=== PATIENT | male | born 1955 | race Caucasian/White ===

== ENCOUNTER 2024-03-31 18:22 | Inpatient (IN) | payer MEDICARE, MEDICAID ==
[~2024-03-31] VITALS: Ht 182.9 cm; Wt 165.5 kg
[~2024-03-31 18:22] MED LIST: INSU100V11 SQ; LANTUS SQ; LISI-642 PO; METR500T PO; NOR5T PO
[2024-03-31 18:53] LABS: BASOPHILS # (AUTO) 0.1 X10'3 (0-0.2); EOSINOPHILS # (AUTO) 0.1 X10'3 (0-0.9); EOSINOPHILS % (AUTO) 2.4 % (0-6); HEMATOCRIT 41.2 % (42.0-52.0); HEMOGLOBIN 13.4 g/dl (14.0-17.9); LYMPHOCYTES # (AUTO) 1.2 X10'3 (1.1-4.8); LYMPHOCYTES % (AUTO) 19.5 % (21-51); MEAN CORPUSCULAR HEMOGLOBIN 27.9 PG (27.0-31.0); MEAN CORPUSCULAR HGB CONC 32.4 g/dL (33.0-36.5); MEAN CORPUSCULAR VOLUME 86.2 FL (78-98); MEAN PLATELET VOLUME 6.4 FL (7.4-10.4); MONOCYTES # (AUTO) 0.6 X10'3 (0-0.9); MONOCYTES % (AUTO) 10.5 % (2-12); NEUTROPHILS # (AUTO) 4.1 X10'3 (1.8-7.7); NEUTROPHILS % (AUTO) 66.6 % (42-75); PLATELET COUNT 354 X10'3 (140-440); RED BLOOD COUNT 4.79 X10'6 (4.70-6.10); RED CELL DISTRIBUTION WIDTH 15.4 % (11.5-14.5); WHITE BLOOD COUNT 6.1 X10'3 (4.5-11.0)
[2024-03-31 19:20] LABS: ALANINE AMINOTRANSFERASE 15 U/L (12-78); ALBUMIN 3.1 G/DL (3.4-5.0); ALBUMIN/GLOBULIN RATIO 0.9 (1.1-1.5); ALKALINE PHOSPHATASE 86 IU/L (46-116); ANION GAP 13 (8-16); ASPARTATE AMINO TRANSFERASE 21 U/L (10-37); BILIRUBIN,TOTAL 0.8 MG/DL (0.1-1.0); BLOOD UREA NITROGEN 31 MG/DL (7-18); BUN/CREATININE RATIO 15.7 (10.0-20.0); CALCIUM 7.8 MG/DL (8.5-10.1); CHLORIDE 103 MMOL/L (99-107); CREATININE 1.97 MG/DL (0.60-1.10); GLUCOSE 145 MG/DL (70-104); SODIUM 140 MMOL/L (135-145); TOTAL CARBON DIOXIDE 24.1 MMOL/L (24-32); TOTAL PROTEIN 6.4 G/DL (6.4-8.2); eCRCL 40 ML/MIN; eGFR 34 ML/MIN
[2024-03-31 19:30] LABS: PRO BRAIN NATRIURETIC PEPTIDE 10016 PG/ML (0-125)
[2024-03-31] MEDS: furosemide 10 MG/1 ML 10ml inj IV ONE (21:03)
[2024-03-31] MEDS ORDERED: magnesium sulf-water 2g/50mL 50 ML IV PRN (21:40)
[2024-03-31] MEDS ORDERED: potassium Cl 40MEQ/1/2NS 520ml 520 ML IV PRN (21:40)
[2024-03-31] MEDS ORDERED: magnesium sulf-water 4G/100mL 100 ML IV PRN (21:40)
[2024-03-31] MEDS ORDERED: potassium Cl 20 mEq SR tablet PO PRN ×2 (21:40)
[2024-03-31] MEDS ORDERED: glucagon, human recombinant 1mg kit SUBCUT PRN (21:55)
[2024-03-31] MEDS ORDERED: DEXTROSE 15 GM of carb/4 tabs (each vial/BOTTLE has 4 tablets) PO PRN (21:55)
[2024-03-31] MEDS ORDERED: dextrose 50%-water 50ml dispensing syringe IV PRN ×2 (21:55)
[2024-03-31] MEDS ORDERED: VERA80TA7 PO (21:56)
[2024-03-31] MEDS ORDERED: OMEP40CA21 PO (21:56)
[2024-03-31] MEDS ORDERED: FURO20TA4 PO (21:56)
[2024-03-31] MEDS ORDERED: GABA-1555 PO (21:56)
[2024-03-31] MEDS ORDERED: APIX5TAB3 PO (21:56)
[2024-03-31] MEDS ORDERED: MIRT-87 PO (21:56)
[2024-03-31] MEDS ORDERED: MIRT-88 PO (21:56)
[2024-03-31] MEDS ORDERED: PRAZ1CAP5 PO (21:56)
[2024-03-31] MEDS ORDERED: LEVO50TA8 PO (21:56)
[2024-03-31] MEDS ORDERED: METF-438 PO (21:56)
[2024-03-31] MEDS ORDERED: HYDR-3686 PO (21:56)
[2024-03-31] MEDS ORDERED: ATOR40TA72 PO (21:56)
[2024-03-31] MEDS ORDERED: ESCI20TA39 PO (21:56)
[2024-03-31 22:00] LABS: HEMOGLOBIN A1C 8.2 % (4.5-6.2)
[2024-03-31] MEDS: PERFLUTREN PROTEIN-A MICROSPHR (Optison) 0.22 MG/ML 3ML VIAL IV ONE (22:21)
[2024-03-31 22:40] LABS: BILIRUBIN,URINE NEGATIVE (Neg); CLARITY,URINE CLOUDY (Clear); COLOR,URINE YELLOW (Yellow); GLUCOSE, URINE NEGATIVE (Neg); KETONES,URINE TRACE mg/dl (Neg); LEUKOCYTE ESTERASE ,URINE NEGATIVE (Neg); NITRITES, URINE NEGATIVE (Neg); OCCULT BLOOD,URINE NEGATIVE (Neg); PH,URINE 5.5 (4.8-8.0); PROTEIN,URINE TRACE mg/dl (Neg); UROBILINOGEN,URINE 0.2 E.U/dL (0.2-1.0)
[2024-03-31 22:48] LABS: BACTERIA,URINE 4+ /HPF (Neg); RBC,URINE NONE SEEN /HPF (0-2); SQUAMOUS EPITHELIAL CELL,UR FEW /LPF (FEW); UA COLLECTION TYPE CLN CATCH MIDSTREAM
[2024-03-31 23:11] LABS: OSMOLALITY UA 441.5 MOSM/K (50-1400)
[2024-04-01] VITALS (9 sets, daily range): BP systolic 90–131; BP diastolic 60–84; PULSE 52–125; RESP 14–20; TEMP 97.4–98.5; O2SAT 92–99
[2024-04-01] MEDS: FLU VACC TS2024-25(6MOS UP)/PF 45 MCG/0.5 ML SYRINGE IMVAC ONE (02:25)
[2024-04-01] MEDS: HYDROcodone/acetaminophen 10/325mg tab PO ONE (05:34)
[2024-04-01 06:51] LABS: BASOPHILS # (AUTO) 0.1 X10'3 (0-0.2); BASOPHILS % (AUTO) 0.8 % (0-1); EOSINOPHILS # (AUTO) 0.2 X10'3 (0-0.9); EOSINOPHILS % (AUTO) 2.4 % (0-6); HEMATOCRIT 39.5 % (42.0-52.0); HEMOGLOBIN 12.9 g/dl (14.0-17.9); LYMPHOCYTES # (AUTO) 1.1 X10'3 (1.1-4.8); LYMPHOCYTES % (AUTO) 17.2 % (21-51); MEAN CORPUSCULAR HGB CONC 32.7 g/dL (33.0-36.5); MEAN CORPUSCULAR VOLUME 85.7 FL (78-98); MEAN PLATELET VOLUME 6.9 FL (7.4-10.4); MONOCYTES # (AUTO) 0.7 X10'3 (0-0.9); MONOCYTES % (AUTO) 10.6 % (2-12); NEUTROPHILS # (AUTO) 4.6 X10'3 (1.8-7.7); PLATELET COUNT 324 X10'3 (140-440); RED BLOOD COUNT 4.61 X10'6 (4.70-6.10); RED CELL DISTRIBUTION WIDTH 15.3 % (11.5-14.5); WHITE BLOOD COUNT 6.6 X10'3 (4.5-11.0)
[2024-04-01 06:56] LABS: ALBUMIN 2.9 G/DL (3.4-5.0); ANION GAP 12 (8-16); BLOOD UREA NITROGEN 32 MG/DL (7-18); BUN/CREATININE RATIO 19.5 (10.0-20.0); CALCIUM 7.8 MG/DL (8.5-10.1); CHLORIDE 105 MMOL/L (99-107); CHOL/HDL RATIO 2.5 (0.00-4.99); CHOLESTEROL 81 MG/DL (0-200); CREATININE 1.64 MG/DL (0.60-1.10); GLUCOSE 120 MG/DL (70-104); HDL CHOLESTEROL 33 MG/DL (35-60); LDL CHOLESTEROL 44 MG/DL (50-100); MAGNESIUM 1.1 MG/DL (1.5-2.4); SODIUM 139 MMOL/L (135-145); TOTAL CARBON DIOXIDE 21.8 MMOL/L (24-32); TRIGLYCERIDES 69 MG/DL (20-135); eCRCL 48 ML/MIN; eGFR 42 ML/MIN
[2024-04-01] MEDS: INSULIN LISPRO 100 UNIT/ML INSULN.PEN MULTI-DOSE SQ SCH ×2 (07:00→09:17)
[2024-04-01] MEDS: K and/or MAG REPLACEMENT MC SCH (08:00)
[2024-04-01 09:25] LABS: THYROID STIMULATING HORMONE 3.39 ulU/ml (0.34-4.50)
[2024-04-01] MEDS: ESCITALOPRAM 10 mg tablet 10 MG TABLET PO SCH (09:26)
[2024-04-01] MEDS: sacubitril/valsartan 24mg-26mg tablet PO SCH (09:28)
[2024-04-01] MEDS: docusate sod 100mg capsule PO SCH (09:28)
[2024-04-01] MEDS: apixaban 5mg tablet PO SCH (09:28)
[2024-04-01] MEDS: furosemide 40mg/4ml inj IV SCH ×2 (09:29→14:16)
[2024-04-01] MEDS: gabapentin 400mg capsule PO SCH (09:29)
[2024-04-01] MEDS: atorvastatin 20mg tablet PO SCH (09:29)
[2024-04-01] MEDS: pantoprazole 40mg Tablet.DR PO SCH (09:29)
[2024-04-01] MEDS: metoprolol succinate 25mg (24-HOUR) SR. Tablet PO SCH (09:30)
[2024-04-01] MEDS: levoTHYROXINE 25mcg tablet PO SCH (09:30)
[2024-04-01] MEDS: metoprolol tartrate 25mg tablet PO ONE (14:17)
[2024-04-01] MEDS: isosorbide mononitrate 30mg tab.SR.24H PO SCH (14:18)
[2024-04-01 17:20] LABS: GLUCOSE,BODY FLUID 148 MG/DL; LDH,BODY FLUID 72 U/L; TOTAL PROTEIN,BODY FLUID 3.3 G/DL
[2024-04-01 17:31] LABS: BF RBC COUNT 860 /CU MM; BF WBC COUNT 71 /CU MM (0-1000); BFAPPEAR HAZY; BFCOLOR YELLOW; BFSOURCE ASCITES FLD; BFVOLUME 55 ML; LYMPHOCYTES,BODY FLUID 86 %; MONOCYTES,BODY FLUID 1 %; NEUTROPHILS,BODY FLUID 13 %
[2024-04-01 18:17] LABS: LACTATE DEHYDROGENASE 206 U/L (85-227)
[2024-04-01] MEDS ORDERED: ipratropium/albuterol 3ml nebule NEB PRN (18:55)
[2024-04-01] MEDS: HALLS - SOOTHE MENTHOL 1.8 MG cough drop LOZENGE MM PRN (19:32)
[2024-04-01] MEDS: ondansetron/PF 4mg/2ml inj IV PRN (19:35)
[2024-04-01] MEDS: ipratropium/albuterol 3ml nebule NEB SCH (19:48)
[2024-04-01] MEDS: mirtazapine 15mg tablet PO SCH (22:19)
[2024-04-01] MEDS: gabapentin 300mg capsule PO SCH (22:19)
[2024-04-01] MEDS: prazosin 1mg capsule PO SCH (22:19)
[2024-04-01] MEDS: insulin glargine (Lantus) pen - multi-dose SQ SCH (22:35)
[2024-04-01 23:40] LABS: URINE AMPHETAMINE SCREEN NEGATIVE (Neg); URINE BARBITUATE SCREEN NEGATIVE (Neg); URINE BENZODIAZEPINES SCREEN NEGATIVE (Neg); URINE CANNABINOID SCREEN NEGATIVE (Neg); URINE COCAINE SCREEN NEGATIVE (Neg); URINE METHADONE SCREEN NEGATIVE (Neg); URINE OPIATE SCREEN POSITIVE (Neg); URINE PHENCYCLIDINE SCREEN NEGATIVE (Neg)
[2024-04-02] VITALS (11 sets, daily range): BP systolic 102–139; BP diastolic 54–94; PULSE 66–94; RESP 14–18; TEMP 97.3–98.3; O2SAT 92–96
[2024-04-02] MEDS: HYDROcodone/acetaminophen 10/325mg tab PO PRN (00:19)
[2024-04-02] MEDS: mag hydrox/Alum hydrox/simeth 30ml oral suspension PO PRN (00:53)
[2024-04-02 07:27] LABS: BASOPHILS % (AUTO) 0.2 % (0-1); EOSINOPHILS % (AUTO) 0 % (0-6); HEMATOCRIT 40.1 % (42.0-52.0); HEMOGLOBIN 13.3 g/dl (14.0-17.9); LYMPHOCYTES # (AUTO) 0.5 X10'3 (1.1-4.8); LYMPHOCYTES % (AUTO) 6.8 % (21-51); MEAN CORPUSCULAR HGB CONC 33.1 g/dL (33.0-36.5); MEAN CORPUSCULAR VOLUME 84.7 FL (78-98); MEAN PLATELET VOLUME 6.6 FL (7.4-10.4); MONOCYTES # (AUTO) 0.5 X10'3 (0-0.9); MONOCYTES % (AUTO) 6.7 % (2-12); NEUTROPHILS # (AUTO) 6.7 X10'3 (1.8-7.7); NEUTROPHILS % (AUTO) 86.3 % (42-75); PLATELET COUNT 340 X10'3 (140-440); RED BLOOD COUNT 4.73 X10'6 (4.70-6.10); RED CELL DISTRIBUTION WIDTH 15.6 % (11.5-14.5); WHITE BLOOD COUNT 7.8 X10'3 (4.5-11.0)
[2024-04-02] MEDS: DEXTROSE 15 GM of carb/4 tabs (each vial/BOTTLE has 4 tablets) PO PRN (07:41)
[2024-04-02 07:47] LABS: ALBUMIN 3.1 G/DL (3.4-5.0); ANION GAP 10 (8-16); BLOOD UREA NITROGEN 39 MG/DL (7-18); BUN/CREATININE RATIO 19.8 (10.0-20.0); CALCIUM 7.6 MG/DL (8.5-10.1); CHLORIDE 102 MMOL/L (99-107); CREATININE 1.97 MG/DL (0.60-1.10); GLUCOSE 58 MG/DL (70-104); MAGNESIUM 1.2 MG/DL (1.5-2.4); POTASSIUM 3.8 MMOL/L (3.5-5.1); SODIUM 135 MMOL/L (135-145); TOTAL CARBON DIOXIDE 22.9 MMOL/L (24-32); eCRCL 40 ML/MIN; eGFR 34 ML/MIN
[2024-04-02] MEDS: spironolactone 25 MG tablet PO SCH (11:50)
[2024-04-02 13:05] LABS: INR 1.7 INR; PROTHROMBIN TIME 17.3 SECONDS (9.0-12.0)
[2024-04-02] MEDS: EMPAGLIFLOZIN 10 MG TABLET PO SCH (13:41)
[2024-04-02] MEDS: methylPREDNISolone sod succ 125mg/2ml vial IV SCH (16:29)
[2024-04-02] MEDS: furosemide 40mg/4ml inj IV SCH (16:29)
[2024-04-02] MEDS: azithromycin/NS 500mg/250ml 250 ML IV SCH (16:29)
[2024-04-02 23:23] LABS: ALANINE AMINOTRANSFERASE 285 U/L (12-78); ALBUMIN/GLOBULIN RATIO 0.9 (1.1-1.5); ALKALINE PHOSPHATASE 88 IU/L (46-116); ASPARTATE AMINO TRANSFERASE 644 U/L (10-37); BILIRUBIN,DIRECT 0.4 MG/DL (0-0.3); BILIRUBIN,TOTAL 0.7 MG/DL (0.1-1.0); TOTAL PROTEIN 6.5 G/DL (6.4-8.2)
[2024-04-02] MEDS: cefepime 1GM in D5W 50mL 50 ML IV SCH (23:34)
[2024-04-03] VITALS (17 sets, daily range): BP systolic 96–100; BP diastolic 56–89; PULSE 59–99; RESP 12–19; TEMP 97.3–98.5; O2SAT 92–97
[2024-04-03 06:58] LABS: ALBUMIN 2.9 G/DL (3.4-5.0); ANION GAP 9 (8-16); BLOOD UREA NITROGEN 46 MG/DL (7-18); BUN/CREATININE RATIO 22.9 (10.0-20.0); CALCIUM 7.6 MG/DL (8.5-10.1); CHLORIDE 102 MMOL/L (99-107); CREATININE 2.01 MG/DL (0.60-1.10); GLUCOSE 105 MG/DL (70-104); MAGNESIUM 1.3 MG/DL (1.5-2.4); POTASSIUM 4.4 MMOL/L (3.5-5.1); SODIUM 136 MMOL/L (135-145); TOTAL CARBON DIOXIDE 25.4 MMOL/L (24-32); eCRCL 39 ML/MIN; eGFR 33 ML/MIN
[2024-04-03 06:59] LABS: BASOPHILS % (AUTO) 0.1 % (0-1); EOSINOPHILS % (AUTO) 0 % (0-6); HEMATOCRIT 39.3 % (42.0-52.0); HEMOGLOBIN 12.9 g/dl (14.0-17.9); LYMPHOCYTES # (AUTO) 0.5 X10'3 (1.1-4.8); LYMPHOCYTES % (AUTO) 6.9 % (21-51); MEAN CORPUSCULAR HEMOGLOBIN 27.9 PG (27.0-31.0); MEAN CORPUSCULAR HGB CONC 32.8 g/dL (33.0-36.5); MEAN CORPUSCULAR VOLUME 85.1 FL (78-98); MEAN PLATELET VOLUME 6.8 FL (7.4-10.4); MONOCYTES # (AUTO) 0.1 X10'3 (0-0.9); MONOCYTES % (AUTO) 1.4 % (2-12); NEUTROPHILS % (AUTO) 91.6 % (42-75); PLATELET COUNT 323 X10'3 (140-440); RED BLOOD COUNT 4.62 X10'6 (4.70-6.10); RED CELL DISTRIBUTION WIDTH 15.1 % (11.5-14.5); WHITE BLOOD COUNT 7.6 X10'3 (4.5-11.0)
[2024-04-03] MEDS: magnesium hydroxide 30ml (MOM) UD suspension PO PRN (07:50)
[2024-04-03] MEDS: magnesium Cl slow-release 64mg tablet PO PRN (07:52)
[2024-04-03] MEDS ORDERED: CefTRIAXone/D5W-Rocephin 1gm 50 ML IV SCH (08:00)
[2024-04-03] MEDS: pantoprazole 40 MG vial IV SCH (08:48)
[2024-04-03 09:12] LABS: ALANINE AMINOTRANSFERASE 218 U/L (12-78); ALKALINE PHOSPHATASE 86 IU/L (46-116); ASPARTATE AMINO TRANSFERASE 272 U/L (10-37); BILIRUBIN,DIRECT 0.3 MG/DL (0-0.3); BILIRUBIN,TOTAL 0.6 MG/DL (0.1-1.0); TOTAL PROTEIN 5.9 G/DL (6.4-8.2)
[2024-04-03] MEDS: magnesium oxide 400mg tablet PO SCH (12:29)
[2024-04-03] MEDS: furosemide 40mg/4ml inj IV SCH (20:00)
[2024-04-04] VITALS (15 sets, daily range): BP systolic 98–106; BP diastolic 59–69; PULSE 56–110; RESP 16–18; TEMP 97.9–98.4; O2SAT 92–95
[2024-04-04 04:20] LABS: BASOPHILS % (AUTO) 0.1 % (0-1); EOSINOPHILS % (AUTO) 0 % (0-6); HEMATOCRIT 39.3 % (42.0-52.0); HEMOGLOBIN 12.8 g/dl (14.0-17.9); LYMPHOCYTES # (AUTO) 0.5 X10'3 (1.1-4.8); MEAN CORPUSCULAR HEMOGLOBIN 27.9 PG (27.0-31.0); MEAN CORPUSCULAR HGB CONC 32.7 g/dL (33.0-36.5); MEAN CORPUSCULAR VOLUME 85.4 FL (78-98); MEAN PLATELET VOLUME 6.9 FL (7.4-10.4); MONOCYTES # (AUTO) 0.3 X10'3 (0-0.9); MONOCYTES % (AUTO) 2.8 % (2-12); NEUTROPHILS # (AUTO) 10.9 X10'3 (1.8-7.7); NEUTROPHILS % (AUTO) 93.1 % (42-75); PLATELET COUNT 335 X10'3 (140-440); RED CELL DISTRIBUTION WIDTH 15.4 % (11.5-14.5); WHITE BLOOD COUNT 11.7 X10'3 (4.5-11.0)
[2024-04-04 04:38] LABS: ALANINE AMINOTRANSFERASE 198 U/L (12-78); ALBUMIN 2.9 G/DL (3.4-5.0); ALBUMIN/GLOBULIN RATIO 0.9 (1.1-1.5); ALKALINE PHOSPHATASE 80 IU/L (46-116); ANION GAP 8 (8-16); ASPARTATE AMINO TRANSFERASE 169 U/L (10-37); BILIRUBIN,TOTAL 0.5 MG/DL (0.1-1.0); BLOOD UREA NITROGEN 48 MG/DL (7-18); BUN/CREATININE RATIO 25.8 (10.0-20.0); CALCIUM 7.9 MG/DL (8.5-10.1); CHLORIDE 102 MMOL/L (99-107); CREATININE 1.86 MG/DL (0.60-1.10); GLUCOSE 163 MG/DL (70-104); MAGNESIUM 1.6 MG/DL (1.5-2.4); POTASSIUM 4.2 MMOL/L (3.5-5.1); SODIUM 137 MMOL/L (135-145); eCRCL 42 ML/MIN; eGFR 36 ML/MIN
[2024-04-04] MEDS: CEFEPIME 2gm in D5W 50mL 50 ML IV SCH (08:00)
[2024-04-04] MEDS: lactulose 20gm/30ml cup PO SCH (17:35)
[2024-04-04] MEDS: acetaminophen 325mg tablet PO PRN (17:48)
[2024-04-05] VITALS (12 sets, daily range): BP systolic 103–127; BP diastolic 56–71; PULSE 83–96; RESP 15–18; TEMP 97–97.9; O2SAT 94–98
[2024-04-05 08:17] LABS: BASOPHILS % (AUTO) 0.2 % (0-1); EOSINOPHILS % (AUTO) 0 % (0-6); HEMATOCRIT 40.5 % (42.0-52.0); HEMOGLOBIN 13.2 g/dl (14.0-17.9); LYMPHOCYTES # (AUTO) 0.4 X10'3 (1.1-4.8); LYMPHOCYTES % (AUTO) 2.9 % (21-51); MEAN CORPUSCULAR HEMOGLOBIN 27.6 PG (27.0-31.0); MEAN CORPUSCULAR HGB CONC 32.5 g/dL (33.0-36.5); MEAN CORPUSCULAR VOLUME 85.1 FL (78-98); MEAN PLATELET VOLUME 6.4 FL (7.4-10.4); MONOCYTES # (AUTO) 0.5 X10'3 (0-0.9); NEUTROPHILS # (AUTO) 11.9 X10'3 (1.8-7.7); NEUTROPHILS % (AUTO) 92.9 % (42-75); PLATELET COUNT 344 X10'3 (140-440); RED BLOOD COUNT 4.76 X10'6 (4.70-6.10); RED CELL DISTRIBUTION WIDTH 15.2 % (11.5-14.5); WHITE BLOOD COUNT 12.9 X10'3 (4.5-11.0)
[2024-04-05 08:27] LABS: ALANINE AMINOTRANSFERASE 180 U/L (12-78); ALBUMIN 2.9 G/DL (3.4-5.0); ALBUMIN/GLOBULIN RATIO 0.9 (1.1-1.5); ALKALINE PHOSPHATASE 86 IU/L (46-116); ANION GAP 9 (8-16); ASPARTATE AMINO TRANSFERASE 117 U/L (10-37); BILIRUBIN,TOTAL 0.6 MG/DL (0.1-1.0); BLOOD UREA NITROGEN 47 MG/DL (7-18); BUN/CREATININE RATIO 28.8 (10.0-20.0); CALCIUM 7.9 MG/DL (8.5-10.1); CHLORIDE 103 MMOL/L (99-107); CREATININE 1.63 MG/DL (0.60-1.10); GLUCOSE 167 MG/DL (70-104); MAGNESIUM 1.7 MG/DL (1.5-2.4); POTASSIUM 4.1 MMOL/L (3.5-5.1); SODIUM 139 MMOL/L (135-145); TOTAL CARBON DIOXIDE 26.6 MMOL/L (24-32); eCRCL 48 ML/MIN; eGFR 42 ML/MIN
[2024-04-05] MEDS: nystatin 15 GM powder TP SCH (14:14)
[2024-04-05] MEDS: guaiFENesin ER 600mg tablet PO SCH (14:42)
[2024-04-05] MEDS ORDERED: guaiFENesin ER 600mg tablet PO SCH (20:00)
[2024-04-05] MEDS: metoprolol tartrate 25mg tablet PO SCH (20:12)
[2024-04-06] VITALS (14 sets, daily range): BP systolic 83–111; BP diastolic 49–75; PULSE 18–88; RESP 14–20; TEMP 97–98.4; O2SAT 92–99
[2024-04-06] MEDS: Melatonin 3mg tablet PO SCH (02:00)
[2024-04-06 05:21] LABS: HBSAG SCREEN Negative (Negative); HEP A AB, IGM Negative (Negative); HEP B CORE AB, IGM Negative (Negative); HEP B SURF AB Reactive (.); HEPATITIS C VIRUS ANTIBODY Non Reactive (Non Reactive)
[2024-04-06 07:35] LABS: BASOPHILS % (AUTO) 0.2 % (0-1); EOSINOPHILS % (AUTO) 0 % (0-6); HEMOGLOBIN 12.8 g/dl (14.0-17.9); LYMPHOCYTES # (AUTO) 0.4 X10'3 (1.1-4.8); LYMPHOCYTES % (AUTO) 3.8 % (21-51); MEAN CORPUSCULAR HEMOGLOBIN 27.1 PG (27.0-31.0); MEAN CORPUSCULAR VOLUME 84.7 FL (78-98); MEAN PLATELET VOLUME 6.6 FL (7.4-10.4); MONOCYTES # (AUTO) 0.4 X10'3 (0-0.9); MONOCYTES % (AUTO) 3.9 % (2-12); NEUTROPHILS # (AUTO) 10.2 X10'3 (1.8-7.7); NEUTROPHILS % (AUTO) 92.1 % (42-75); PLATELET COUNT 261 X10'3 (140-440); RED BLOOD COUNT 4.72 X10'6 (4.70-6.10); RED CELL DISTRIBUTION WIDTH 15.3 % (11.5-14.5)
[2024-04-06 07:48] LABS: ALANINE AMINOTRANSFERASE 146 U/L (12-78); ALBUMIN 2.6 G/DL (3.4-5.0); ALBUMIN/GLOBULIN RATIO 0.9 (1.1-1.5); ALKALINE PHOSPHATASE 70 IU/L (46-116); ANION GAP 9 (8-16); ASPARTATE AMINO TRANSFERASE 75 U/L (10-37); BILIRUBIN,TOTAL 0.7 MG/DL (0.1-1.0); BLOOD UREA NITROGEN 44 MG/DL (7-18); BUN/CREATININE RATIO 28.9 (10.0-20.0); CALCIUM 7.8 MG/DL (8.5-10.1); CHLORIDE 103 MMOL/L (99-107); CREATININE 1.52 MG/DL (0.60-1.10); GLUCOSE 152 MG/DL (70-104); POTASSIUM 3.9 MMOL/L (3.5-5.1); SODIUM 140 MMOL/L (135-145); TOTAL CARBON DIOXIDE 28.3 MMOL/L (24-32); TOTAL PROTEIN 5.5 G/DL (6.4-8.2); eCRCL 52 ML/MIN; eGFR 46 ML/MIN
[2024-04-06] MEDS: EMPAGLIFLOZIN 10 MG TABLET PO SCH (08:17)
[2024-04-06] MEDS: losartan 25mg tablet PO SCH (08:19)
[2024-04-06] MEDS: spironolactone 25 MG tablet PO SCH (08:30)
[2024-04-07 06:00] VITALS: BP 105/76; PULSE 74; RESP 18; TEMP 98; O2SAT 100
[2024-04-07] MEDS: CEFEPIME 2gm in D5W 50mL 50 ML IV SCH (08:00)
[2024-04-07] MEDS ORDERED: azithromycin 250mg tablet PO SCH (08:00)
[2024-04-07 08:06] LABS: BASOPHILS % (AUTO) 0.1 % (0-1); EOSINOPHILS % (AUTO) 0 % (0-6); HEMATOCRIT 44.9 % (42.0-52.0); HEMOGLOBIN 14.6 g/dl (14.0-17.9); LYMPHOCYTES # (AUTO) 0.5 X10'3 (1.1-4.8); LYMPHOCYTES % (AUTO) 3.7 % (21-51); MEAN CORPUSCULAR HEMOGLOBIN 27.7 PG (27.0-31.0); MEAN CORPUSCULAR HGB CONC 32.4 g/dL (33.0-36.5); MEAN CORPUSCULAR VOLUME 85.5 FL (78-98); MEAN PLATELET VOLUME 6.5 FL (7.4-10.4); MONOCYTES # (AUTO) 0.4 X10'3 (0-0.9); MONOCYTES % (AUTO) 3.3 % (2-12); NEUTROPHILS # (AUTO) 11.6 X10'3 (1.8-7.7); NEUTROPHILS % (AUTO) 92.9 % (42-75); PLATELET COUNT 272 X10'3 (140-440); RED BLOOD COUNT 5.26 X10'6 (4.70-6.10); RED CELL DISTRIBUTION WIDTH 15.4 % (11.5-14.5); WHITE BLOOD COUNT 12.5 X10'3 (4.5-11.0)
[2024-04-07 08:16] VITALS: PULSE 79; RESP 19; O2SAT 98
[2024-04-07 08:21] VITALS: PULSE 78; RESP 18
[2024-04-07 08:22] LABS: ALANINE AMINOTRANSFERASE 135 U/L (12-78); ALBUMIN 2.9 G/DL (3.4-5.0); ALBUMIN/GLOBULIN RATIO 0.9 (1.1-1.5); ALKALINE PHOSPHATASE 85 IU/L (46-116); ANION GAP 8 (8-16); ASPARTATE AMINO TRANSFERASE 53 U/L (10-37); BILIRUBIN,TOTAL 0.7 MG/DL (0.1-1.0); BLOOD UREA NITROGEN 47 MG/DL (7-18); BUN/CREATININE RATIO 28.8 (10.0-20.0); CALCIUM 8.3 MG/DL (8.5-10.1); CHLORIDE 102 MMOL/L (99-107); CREATININE 1.63 MG/DL (0.60-1.10); GLUCOSE 141 MG/DL (70-104); SODIUM 142 MMOL/L (135-145); TOTAL CARBON DIOXIDE 32.3 MMOL/L (24-32); TOTAL PROTEIN 6.1 G/DL (6.4-8.2); eCRCL 48 ML/MIN; eGFR 42 ML/MIN
[2024-04-07 10:00] VITALS: BP 96/56; PULSE 61; RESP 21; TEMP 97; O2SAT 96
[2024-04-07 11:16] VITALS: PULSE 88; RESP 18; O2SAT 94
== END 2024-04-07 16:10 | DRG 177 ==
LOC: ER 18:22 → ED HOLD 21:42 → UNDOADMIN 22:00 → ED HOLD 22:00 → ORTHO 4S 04-01 00:55
PROVIDERS: ADMIT Internal Medicine Critical Care Medicine; ATTEND Family Medicine
PROC: 0W9G3ZZ Drainage of Peritoneal Cavity, Percutaneous Approach (ICD-10-PCS; principal; 2024-04-01)
DX: J15.69 Pneumonia due to other Gram-negative bacteria (principal); I50.23 Acute on chronic systolic (congestive) heart failure; J96.91 Respiratory failure, unspecified with hypoxia; N17.9 Acute kidney failure, unspecified; E44.1 Mild protein-calorie malnutrition; R18.8 Other ascites; Z68.42 Body mass index [BMI] 45.0-49.9, adult; I42.0 Dilated cardiomyopathy; I11.0 Hypertensive heart disease with heart failure; J15.9 Unspecified bacterial pneumonia; Z20.822 Contact with and (suspected) exposure to COVID-19; F32.9 Major depressive disorder, single episode, unspecified; E11.65 Type 2 diabetes mellitus with hyperglycemia; E78.5 Hyperlipidemia, unspecified; E03.9 Hypothyroidism, unspecified; E66.01 Morbid (severe) obesity due to excess calories; G89.29 Other chronic pain; M54.9 Dorsalgia, unspecified; M54.2 Cervicalgia; I48.0 Paroxysmal atrial fibrillation; R33.8 Other retention of urine; F43.10 Post-traumatic stress disorder, unspecified; R74.01 Elevation of levels of liver transaminase levels; I08.1 Rheumatic disorders of both mitral and tricuspid valves; Z79.01 Long term (current) use of anticoagulants; Z88.1 Allergy status to other antibiotic agents; Z88.0 Allergy status to penicillin; Z79.4 Long term (current) use of insulin; Z79.899 Other long term (current) drug therapy; Z86.711 Personal history of pulmonary embolism; Z86.718 Personal history of other venous thrombosis and embolism; Z83.3 Family history of diabetes mellitus; Z82.49 Family history of ischemic heart disease and other diseases of the circulatory system
CPT/HCPCS: 36415; 71045; 71250; 74176; 76700; 76770; 80048; 80053; 80061; 80076; 80305; 81001; 82042; 82570; 82945; 82948; 83036; 83605; 83615; 83735; 83880; 83930; 83935; 84157; 84300; 84443; 84484; 85025; 85610; 86705; 86706; 86709; 86803; 87040; 87070; 87075; 87077; 87081; 87088; 87186; 87207; 87340; 87502; 87503; 87522; 87811; 89051; 90686; 93005; 93306; 94640; 94760; 96374; 97161; 97530; 99285; A4314; C1758; G0378; J0456; J0692; J1815; J1940; J2405; J2470; J2919; J7030; J7040